=== PATIENT | female | born 1935 | race Caucasian/White ===

== ENCOUNTER 2017-09-06 10:40 | Outpatient (CLI) | payer MEDICARE, OTHER ==
[~2017-09-06] VITALS: Ht 165.1 cm; Wt 66.4 kg
[2017-09-06] VITALS (9 sets, daily range): BP systolic 120–198; BP diastolic 55–72; PULSE 52–62; TEMP 97.6
[2017-09-06] MEDS ORDERED: SYNTHROID0.088 MG/T PO (12:20)
[2017-09-06] MEDS ORDERED: ZOCOR 20MG20 MG PO (12:21)
[2017-09-06] MEDS ORDERED: PRINIVIL10 MG PO (12:22)
[2017-09-06] MEDS ORDERED: TENORMIN 5050 MG/TAB PO (12:23)
[2017-09-06] MEDS ORDERED: ARICEPT 5MG PO (12:24)
[2017-09-06] MEDS ORDERED: OMEGA-3 FISH1000 MG PO (12:30)
[2017-09-06] MEDS ORDERED: PHARMASSURE GA500 MG PO (12:31)
[2017-09-06] MEDS ORDERED: ASPIRIN E.C. 8181 MG PO (12:31)
[2017-09-06] MEDS ORDERED: CALCIUM-MAGNES1 EAC1 PO (12:32)
[2017-09-06] MEDS ORDERED: VITAMIN D31000 I1 PO (12:33)
[2017-09-06] MEDS ORDERED: NATURE'S BLEND500 M1 PO (12:34)
[2017-09-06] MEDS ORDERED: OSTEO-BI-FLEX 21 TAB PO (12:35)
[2017-09-06] MEDS ORDERED: CINNAMON500 MG (12:35)
== END 2017-09-06 17:15 | disposition home or self-care (01) ==
LOC: COL.CAR 10:40
DX: S22.070A Wedge compression fracture of T9-T10 vertebra, initial encounter for closed fracture (principal); G30.9 Alzheimer's disease, unspecified; F02.80 Dementia in other diseases classified elsewhere, unspecified severity, without behavioral disturbance, psychotic disturbance, mood disturbance, and anxiety; I10 Essential (primary) hypertension; E03.9 Hypothyroidism, unspecified; M17.9 Osteoarthritis of knee, unspecified; M81.0 Age-related osteoporosis without current pathological fracture; E78.00 Pure hypercholesterolemia, unspecified; G43.909 Migraine, unspecified, not intractable, without status migrainosus; Z79.82 Long term (current) use of aspirin; Z90.710 Acquired absence of both cervix and uterus; Z90.722 Acquired absence of ovaries, bilateral; Z90.79 Acquired absence of other genital organ(s); Z87.891 Personal history of nicotine dependence; Z82.49 Family history of ischemic heart disease and other diseases of the circulatory system; W19.XXXA Unspecified fall, initial encounter; Y92.009 Unspecified place in unspecified non-institutional (private) residence as the place of occurrence of the external cause
CPT/HCPCS: C1713; J2250; J3010